=== PATIENT | male | born 1995 ===

== ENCOUNTER 2020-12-17 22:40 | Emergency (ER) | payer SELFPAY ==
[~2020-12-17 22:40] MED LIST: Iopamidol 370 76% 100 ML VIAL ONE
[2020-12-17 23:05] LABS: #Basophils 0.2 thou/uL (0.0-0.2); #Eosinphils 0.4 thou/uL (0.0-0.7); #Lymphocytes 3.8 thou/uL (1.20-3.40); #Monocytes 0.6 thou/uL (0.11-0.59); #Neutrophils 4.9 thou/uL (1.40-6.50); %Basophils 1.7 % (0.0-1.0); %Eosinophils 4.5 % (0.0-10.0); %Lymphocytes 38.2 % (21.0-51.0); %Monocytes 6.2 % (0.0-10.0); %Neutrophils 49.4 % (42.0-75.0); Hemoglobin 15.5 g/dL (14.0-18.0); Mean Corpuscular HGB CONC 33.2 g/dL (32.0-36.0); Mean Corpuscular Hemoglobin 30.7 pg (27.0-31.0); Mean Corpuscular Volume 92.5 fL (78.0-98.0); Mean Platelet Volume 8.3 fL (7.4-10.4); Platelet Count 249 thou/uL (130-400); RBC Distribution Width 12.7 % (11.5-14.5); Red Blood Cell (RBC) Count 5.04 mill/uL (4.70-6.10); White Blood Cell (WBC) Count 9.8 thou/uL (4.8-10.8)
[2020-12-17 23:10] LABS: Prothrombin Time 12.9 sec (12.0-14.7)
[2020-12-17 23:11] LABS: PTT 30.6 sec (22.9-36.1)
[2020-12-17 23:18] LABS: ALT (SGPT) 49 U/L (8-55); AST (SGOT) 53 U/L (5-34); Albumin 4.8 g/dL (3.5-5.0); Alkaline Phosphatase 114 U/L (40-110); Anion Gap 16 mmol/L (10-20); BUN (Urea Nitrogen) 8 mg/dL (8.9-20.6); Bilirubin, Total 0.4 mg/dL (0.2-1.2); Calc. Creatinine Clearance 0 mL/min (70-130); Calcium 9.7 mg/dL (7.8-10.44); Carbon Dioxide 21 mmol/L (22-29); Chloride 109 mmol/L (98-107); Globulin 3.8 g/dL (2.4-3.5); Glucose 86 mg/dL (70-105); Potassium 4.4 mmol/L (3.5-5.1); Protein, Total 8.6 g/dL (6.0-8.3); Sodium 142 mmol/L (136-145)
[2020-12-17] MEDS ORDERED: Ondansetron PF 4 MG/2 ML Vial ONE (23:30)
[2020-12-17] MEDS ORDERED: Pantoprazole 40 MG VIAL ONE (23:30)
== END 2020-12-18 00:43 | disposition home or self-care (01) ==
LOC: BURERS 22:40
DX: K29.71 Gastritis, unspecified, with bleeding (principal); F17.210 Nicotine dependence, cigarettes, uncomplicated
CPT/HCPCS: 74177; 80053; 82274; 83690; 85025; 85610; 85730; 96374; 96375; C9113; J2405; Q9967

== ENCOUNTER 2020-12-25 01:38 | Emergency (ER) | payer OTHER, SELFPAY ==
[2020-12-25 02:29] LABS: #Basophils 0.1 thou/uL (0.0-0.2); #Eosinphils 0.1 thou/uL (0.0-0.7); #Lymphocytes 2.5 thou/uL (1.20-3.40); #Monocytes 0.5 thou/uL (0.11-0.59); %Eosinophils 0.7 % (0.0-10.0); %Lymphocytes 17.3 % (21.0-51.0); %Monocytes 3.5 % (0.0-10.0); %Neutrophils 77.5 % (42.0-75.0); Mean Corpuscular HGB CONC 33.7 g/dL (32.0-36.0); Mean Corpuscular Hemoglobin 30.7 pg (27.0-31.0); Mean Corpuscular Volume 91.1 fL (78.0-98.0); Mean Platelet Volume 8.4 fL (7.4-10.4); Platelet Count 262 thou/uL (130-400); RBC Distribution Width 11.9 % (11.5-14.5); Red Blood Cell (RBC) Count 5.22 mill/uL (4.70-6.10); White Blood Cell (WBC) Count 14.2 thou/uL (4.8-10.8)
[2020-12-25 02:43] LABS: ALT (SGPT) 31 U/L (8-55); AST (SGOT) 27 U/L (5-34); Albumin 4.9 g/dL (3.5-5.0); Alkaline Phosphatase 129 U/L (40-110); Anion Gap 19 mmol/L (10-20); BUN (Urea Nitrogen) 12 mg/dL (8.9-20.6); Bilirubin, Total 0.6 mg/dL (0.2-1.2); Calc. Creatinine Clearance 0 mL/min (70-130); Calcium 9.3 mg/dL (7.8-10.44); Carbon Dioxide 19 mmol/L (22-29); Chloride 106 mmol/L (98-107); Globulin 3.4 g/dL (2.4-3.5); Glucose 93 mg/dL (70-105); Lipase 20 U/L (8-78); Potassium 3.9 mmol/L (3.5-5.1); Protein, Total 8.3 g/dL (6.0-8.3); Sodium 140 mmol/L (136-145)
[2020-12-25] MEDS ORDERED: Acetaminophen 500 MG TAB ONE (02:59)
[2020-12-25] MEDS ORDERED: Iopamidol 370 76% 100 ML VIAL ONE (13:48)
== END 2020-12-25 03:37 | disposition home or self-care (01) ==
LOC: BURERS 01:38
DX: S16.1XXA Strain of muscle, fascia and tendon at neck level, initial encounter (principal); S30.1XXA Contusion of abdominal wall, initial encounter; S20.211A Contusion of right front wall of thorax, initial encounter; K21.9 Gastro-esophageal reflux disease without esophagitis; F17.210 Nicotine dependence, cigarettes, uncomplicated; Z79.899 Other long term (current) drug therapy; V89.2XXA Person injured in unspecified motor-vehicle accident, traffic, initial encounter
CPT/HCPCS: 70450; 71260; 72125; 74177; 80053; 83690; 85025; Q9967